=== PATIENT | male | born 1960 | race Caucasian/White ===

== ENCOUNTER → 2017-11-04 10:39 | Outpatient (CLI) | payer MEDICAID, SELFPAY ==
[2017-11-04 12:00] LABS: ALB/GLOB Ratio 0.9 RATIO (0.9-2.4); AST(SGOT) 42 U/L (15-37); Alanine Aminotransfer ALT/SGPT 60 U/L (16-61); Albumin, Serum 3.7 g/dL (3.2-5.0); Alkaline Phosphatase 82 U/L (45-117); Anion Gap 7 (5-15); BUN 13 mg/dL (7-18); BUN/Creat Ratio 12.9 RATIO (10-20); Calcium,Total 8.7 mg/dL (8.5-10.1); Chloride 105 mmol/L (98-107); Cholesterol 180 mg/dL (200); Creatinine, Serum 1.01 mg/dL (0.70-1.30); EST Glomerular Filtration Rate 80 mL/min (>60); Est Glom Filt Rate - Afr Amer 97 mL/min (>60); Globulin 3.9 g/dL (2.2-4.2); Glucose 101 mg/dL (74-106); High Density Lipoprotein 24 mg/dL; Protein, Total 7.6 g/dL (6.4-8.2); Sodium Level 141 mmol/L (136-145); Triglycerides 552 mg/dL
== END ==
PROVIDERS: Family Provider Nurse Practitioner Family; PCP Nurse Practitioner Family; Visit Provider Nurse Practitioner Family
DX: E78.5 Hyperlipidemia, unspecified (principal)
CPT/HCPCS: 36415; 80053; 80061

== ENCOUNTER → 2018-02-08 15:13 | Outpatient (CLI) | payer MEDICAID, SELFPAY ==
[2018-02-08 16:25] LABS: ALB/GLOB Ratio 1.1 RATIO (0.9-2.4); AST(SGOT) 41 U/L (15-37); Alanine Aminotransfer ALT/SGPT 44 U/L (16-61); Albumin, Serum 3.8 g/dL (3.2-5.0); Alkaline Phosphatase 81 U/L (45-117); Anion Gap 10 (5-15); BUN 9 mg/dL (7-18); BUN/Creat Ratio 9.6 RATIO (10-20); Calcium,Total 8.6 mg/dL (8.5-10.1); Chloride 106 mmol/L (98-107); Cholesterol 120 mg/dL (200); Creatinine, Serum 0.94 mg/dL (0.70-1.30); EST Glomerular Filtration Rate 88 mL/min (>60); Est Glom Filt Rate - Afr Amer 106 mL/min (>60); Globulin 3.4 g/dL (2.2-4.2); Glucose 115 mg/dL (74-106); High Density Lipoprotein 25 mg/dL; Potassium 3.7 mmol/L (3.5-5.1); Protein, Total 7.2 g/dL (6.4-8.2); Sodium Level 141 mmol/L (136-145); Triglycerides 269 mg/dL; Very Low Density Lipoprotein 54 mg/dL (5-40)
== END ==
PROVIDERS: Family Provider Nurse Practitioner Family; PCP Nurse Practitioner Family; Visit Provider Nurse Practitioner Family
DX: E78.5 Hyperlipidemia, unspecified (principal)
CPT/HCPCS: 36415; 80053; 80061

== ENCOUNTER → 2018-06-27 11:53 | Outpatient (CLI) | payer BC, MEDICAID, SELFPAY ==
[2018-06-27 14:22] LABS: AST(SGOT) 48 U/L (15-37); Alanine Aminotransfer ALT/SGPT 58 U/L (16-61); Albumin, Serum 3.8 g/dL (3.2-5.0); Alkaline Phosphatase 100 U/L (45-117); Anion Gap 8 (5-15); BUN 11 mg/dL (7-18); BUN/Creat Ratio 11.1 RATIO (10-20); Chloride 105 mmol/L (98-107); Cholesterol 133 mg/dL (200); Creatinine, Serum 0.99 mg/dL (0.70-1.30); EST Glomerular Filtration Rate 82 mL/min (>60); Est Glom Filt Rate - Afr Amer 100 mL/min (>60); Globulin 3.7 g/dL (2.2-4.2); Glucose 75 mg/dL (74-106); High Density Lipoprotein 27 mg/dL; Potassium 3.7 mmol/L (3.5-5.1); Protein, Total 7.5 g/dL (6.4-8.2); Sodium Level 142 mmol/L (136-145); Triglycerides 341 mg/dL; Very Low Density Lipoprotein 68 mg/dL (5-40)
[2018-06-27 14:29] LABS: Hemoglobin A1c 5.2 % (4.2-6.3)
== END ==
PROVIDERS: Family Provider Nurse Practitioner Family; PCP Nurse Practitioner Family; Referring Provider Nurse Practitioner Family
DX: E78.5 Hyperlipidemia, unspecified (principal); R73.01 Impaired fasting glucose; D64.9 Anemia, unspecified
CPT/HCPCS: 36415; 80053; 80061; 83036

== ENCOUNTER → 2019-01-19 16:20 | Outpatient (CLI) | payer MEDICAID, MEDICARE, SELFPAY ==
[2018-11-07 14:05] VITALS: BMI 34.4
== END ==
PROVIDERS: Family Provider Nurse Practitioner Family; PCP Nurse Practitioner Family; Referring Provider Nurse Practitioner Family; Visit Provider Nurse Practitioner Family
DX: E78.5 Hyperlipidemia, unspecified (principal)

== ENCOUNTER 2019-01-21 13:10 | Emergency (ER) | payer MEDICARE, MEDICAID, SELFPAY ==
[2018-11-07 14:05] VITALS: BMI 34.4
[2019-01-21 13:11] VITALS: BP 159/92; PULSE 79; RESP 16; TEMP 36.6; O2SAT 95; BMI 34.4
--- NOTE | 2019-01-21 13:50 | US_ITS ---
STUDY: SCROTUM ULTRASOUND REASON FOR EXAM: Male, 59 years old. Pain and swelling. TECHNIQUE: Ultrasound evaluation of the scrotum was performed with color Doppler and static michaud-scale imaging. COMPARISON: None. FINDINGS: RIGHT TESTICLE INTRATESTICULAR: There is a normal size of the right testicle. The right testicle measures 4.9 x 3.3 x 2.6 cm. There is a homogenous echotexture. There are scattered calcifications. There is normal arterial and normal venous vascularity. There is no demonstrated right testicular mass or cyst. EXTRATESTICULAR: The epididymis is normal in size. There is increased (hyperemic) vascularity of the epididymis. There is no demonstrated epididymal cystic structure. There is a moderate size hydrocele. There is no demonstrated varicocele. There is no demonstrated extratesticular mass or cyst. There is scrotal wall edema. Within the region where possible was reported that appears to be within the region of the right scrotum there is a 1.6 x 1.0 x 1.5 cm subcutaneous complex fluid collection 2.5 cm deep to the skin surface. LEFT TESTICLE INTRATESTICULAR: There is a normal size of the left testicle. The left testicle measures 4.7 x 3.1 x 2.8 cm. There is a homogenous echotexture. There are scattered microcalcifications. There is normal arterial and normal venous vascularity. There is no demonstrated left testicular mass or cyst. EXTRATESTICULAR: The epididymis is normal in size. There is normal vascularity of the epididymis. There is a 7.4 x 5.2 x 7.0 mm epididymal cyst. There is a small to moderate size demonstrated hydrocele. There is no demonstrated varicocele. There is scrotal wall edema. US/Testicular with Arterial Flow IMPRESSION: 1.6 x 1.0 x 1.5 cm complex subcutaneous fluid collection within the region of concern, that may be within the scrotal wall, please correlate clinically. Scrotal wall edema. Bilateral hydroceles. Hyperemic right epididymis may be secondary to a history of epididymitis. Left epididymal cyst. Electronically Signed: Amy Perez MD at 16:04 EDT Tel , Service support ,
[2019-01-21] MEDS: Naproxen 500 MG Tablet PO (14:03)
[2019-01-21 14:10] LABS: Mucous, Urine 0 SEEN /hpf (<or=2+); Squamous Epithelial Cells - UA 0 SEEN /hpf (0-5); White Blood Cells 0 SEEN /hpf (0-5)
[2019-01-21 14:11] LABS: Color, Urine Yellow (Yellow); Glucose, Dipstick Normal (Normal); Ketone-Dipstick Negative (Negative); Leukocyte Esterase-Dipstick Negative /ul (Negative); Nitrite-Dipstick Negative (Negative); Occult Blood-Urine 10 /ul (Negative); Protein-Dipstick Negative (Negative); Urine Bilirubin Dipstick Negative (Negative); Urine Clarity Clear (Clear); Urine Urobilinogen Normal (Normal)
[2019-01-21 14:20] LABS: Bacteria RARE /hpf (None Seen); Red Blood Cells-Urine 0-5 SEEN /hpf (0-5)
[2019-01-21 16:24] VITALS: BP 121/74; PULSE 72; RESP 16; O2SAT 98
--- NOTE | 2019-01-21 16:34 | ED.VISSUMM ---
- ER Visit Summary Date of Service: 01/21/19 Chief Complaint: Scrotal swelling History of Present Illness: The patient is a 59 M who presents for 4 days of worsening scrotal swelling. Patient states he noted swelling and pain on the right upper scrotum but is gradually worsened. Pain is been severe. Earlier today he noted that it was draining pus, which gave some relief from the pain. He has associated nausea. No fever, dysuria, urinary frequency urgency, hematuria or penile discharge. Patient denies any risky sexual behavior that would put him at risk for STDs. Patient has no medical history, including no diabetes. Physical Examination: Vital signs: afebrile, hemodynamically stable, no hypoxia on room air General: well nourished, well developed, in no distress Skin: warm, dry, no rash, no pallor HEENT: normocephalic and atraumatic; PERRL, EOMI, moist mucous membranes Cardiovascular: regular rate and rhythm without murmurs, no peripheral edema, 2+ pulses all distal extremities Respiratory: No increased work of breathing, lungs are clear to auscultation bilaterally, no rales, rhonchi or wheezing Abdominal: Abdomen is soft, nontender with normoactive bowel sounds, no guarding or rebound, no masses : No testicular tenderness, scrotum is edematous, indurated and erythematous, on the right lateral superior region. A small nodule with a scab over top noted in the center. Tenderness to palpation of the right hemiscrotum. No hernia noted. No penile lesions. No penile discharge. No enlarged lymph nodes but tenderness along palpation of the inguinal lymph node chain on the right MSK: Moves all extremities, no deformities, normal strength Neuro: Awake and alert, oriented ?4. No facial droop, sensation and motor function intact and symmetric Test Results: Abnormal Lab Results 01/21/19 14:00 Urine Color Yellow Urine Clarity Clear Urine pH 6.0 Ur Specific [place] 1.010 Urine Protein Negative Urine Glucose (UA) Normal Urine Ketones Negative Urine Occult Blood 10 H Urine Nitrite Negative Urine Bilirubin Negative Urine Urobilinogen Normal Ur Leukocyte Esterase Negative Urine RBC 0-5 SEEN Urine WBC 0 SEEN Ur Squamous Epith Cells 0 SEEN Urine Bacteria RARE Urine Mucus 0 SEEN Clinical Impression(s) from Imaging Studies Testicular Ultrasound 01/21/19 13:50 IMPRESSION: 1.6 x 1.0 x 1.5 cm complex subcutaneous fluid collection within the region of concern, that may be within the scrotal wall, please correlate clinically. Scrotal wall edema. Bilateral hydroceles. Hyperemic right epididymis may be secondary to a history of epididymitis. Left epididymal cyst. Electronically Signed: Amy Perez MD at 16:04 EDT Tel , Service support , Medications Given Discontinued Medications Amoxicillin/Clavulanate Potassium (Augmentin Tablet) 875 mg PO X1 ONE Stop: 01/21/19 16:34 Naproxen (Naprosyn) 500 mg PO X1 ONE Stop: 01/21/19 13:51 Last Admin: 01/21/19 14:03 Dose: 500 mg Emergency Department Course and Treatment: Patient was given naproxen for pain. Urinalysis was negative for infection or hematuria. Scrotal ultrasound was performed that showed a complex subcutaneous fluid collection 2.5 cm below the skin surface. Because of this deep fluid collection concerning for abscess, patient was discussed with Dr. Greene, who recommended admission and IV Zosyn. After discussion with the patient, patient stated he could not stay and needed to leave. Patient was again discussed with Dr. Greene, who then recommended the patient be started on Augmentin and follow-up in the office, calling tomorrow for an appointment, for outpatient drainage of the abscess. Patient was amenable to this plan. He was given the first dose of Augmentin in the emergency department. Patient was given strict return precautions and discharged home. Treatment Plan: [] Disposition: [] Impression: Right scrotal abscess with associated cellulitis This note was generated with [employer] dictation software. It may contain incorrect words, spelling, and punctuation that were not noted in review of the chart prior to signing ED Disposition - Plan for ED Patient: Disposition: Home or Assisted Living Instructions: ED Infec Skin Cellulitis Prescriptions: Amox/Clavulanate Tablet [Augmentin Tablet] 875 mg PO Q12H #20 tab Referrals: Ovi Moon NP-C [Primary Care Provider] - Ben Greene MD [STAFF PHYSICIAN] - 1 Day Additional Instructions: Take the antibiotic as prescribed. Please call the urologist's office first thing in the morning to arrange an appointment for as soon as possible. If you have any worsening of your condition or any new concerning symptoms, please return immediately to the emergency department for another evaluation.
[2019-01-21] MEDS: Amox/Clavulanate 875 MG Tablet PO (16:42)
[2019-01-21 16:43] VITALS: BP 132/78; PULSE 86; RESP 16; O2SAT 98
== END 2019-01-21 16:44 | disposition home or self-care (01) ==
PROVIDERS: Emergency Provider Emergency Medicine; Family Provider Nurse Practitioner Family; PCP Nurse Practitioner Family
DX: N49.2 Inflammatory disorders of scrotum (principal); N43.3 Hydrocele, unspecified; Z72.0 Tobacco use
CPT/HCPCS: 76870; 81001; 93976; 99283

== ENCOUNTER 2019-03-24 12:48 | Emergency (ER) | payer MEDICARE, MEDICAID, SELFPAY ==
[2019-03-24 12:49] VITALS: BP 135/88; PULSE 69; RESP 18; TEMP 36.4; O2SAT 96; BMI 32.8
--- NOTE | 2019-03-24 13:04 | RAD_ITS ---
STUDY: X-RAY CHEST REASON FOR EXAM: Male, 59 years old. Cough TECHNIQUE: Frontal and lateral views of the chest COMPARISON: 07/13/2017 FINDINGS: The lungs are clear. There are no pleural effusions. There is no pneumothorax. The heart is normal in size. The visualized osseous structures are within normal limits. RAD/Chest PA and Lateral IMPRESSION: No acute thoracic pathology. Electronically Signed: Clraence Wise, at 14:00 EDT Tel , Service support ,
[2019-03-24 13:13] VITALS: PULSE 68; RESP 18
[2019-03-24] MEDS: Ipratropium/Albuterol Sulfate 3 ML AMPUL.NEB INHALATION (13:13)
--- NOTE | 2019-03-24 13:15 | ED.VISSUMM ---
- ER Visit Summary Date of Service: 03/24/19 Chief Complaint: Cough and wheezing History of Present Illness: The patient is a 59 M who presents for evaluation of cough and wheezing. Patient states symptoms have been present for 1 week. He reports his symptoms began after he was changing the Freon in his cars air-conditioner he drove around with the AC on high. City a little bit discomfort in his throat but developed a moist productive cough. Now he states he is wheezing. Previous history of smoker does not smoke currently. History of a heart murmur obstructive sleep apnea GERD and IBS. No fevers. He has not been diagnosed with asthma or any form of COPD. Physical Examination: Afebrile vital signs are stable Gen: Well-nourished well-developed Head: Normocephalic atraumatic Eyes: Perrl EOMI ENT: TMs clear no rhinorrhea moist mucous membranes Neck: Supple no lymphadenopathy no JVD nontender CVS: Regular rate rhythm no murmurs normal S1-S2 Respiratory: No distress bilateral rhonchi, wheezing aspiratory, and tactile fremitus chest nontender Abdomen: Soft nontender nondistended normal bowel sounds no masses Back: Nontender Extremity: Nontender no edema Skin: Normal color no rash Neuro: alert orientated ?3 CN II-XII intact normal strength sensation Psych: Normal affect normal mood Test Results: Chest x-rays obtained. This was negative for infiltrate. Emergency Department Course and Treatment: The patient received a DuoNeb. Wheezing is better. Rhonchi remain. Patient was started on albuterol MDI, prednisone, and azithromycin. Return if worsening or concerns follow-up with primary care. I will write him a work note excusing him until Tuesday. Impression: 1. Acute bronchitis with bronchospasm This note was generated with [employer] dictation software. It may contain incorrect words, spelling, and punctuation that were not noted in review of the chart prior to signing ED Disposition - Plan for ED Patient: Disposition: Home or Assisted Living Instructions: BRONCHITIS with Wheezing (Adult) Prescriptions: Prednisone [Deltasone] 60 mg PO DAILY #15 tab Prescription Printed Albuterol Inhaler [Ventolin Hfa] 2 puff INHALATION Q4H PRN PRN #1 inhaler PRN Reason: Wheezing Prescription Printed Azithromycin [Zithromax Z-Jeyson] 250 mg PO UD #1 box Prescription Printed Referrals: Ovi Moon, T[employer] ERECTOR-C [Primary Care Provider] - 1 Week if not improving
== END 2019-03-24 14:27 | disposition home or self-care (01) ==
PROVIDERS: Emergency Provider Emergency Medicine; Family Provider Nurse Practitioner Family; PCP Nurse Practitioner Family
DX: J20.9 Acute bronchitis, unspecified (principal); G47.33 Obstructive sleep apnea (adult) (pediatric); K21.9 Gastro-esophageal reflux disease without esophagitis; K58.9 Irritable bowel syndrome, unspecified; Z79.899 Other long term (current) drug therapy; Z87.891 Personal history of nicotine dependence
CPT/HCPCS: 71046; 94640; 99282

== ENCOUNTER → 2019-04-12 14:21 | Outpatient (CLI) | payer MEDICARE, MEDICAID, SELFPAY ==
[2019-03-24 12:49] VITALS: BMI 32.8
[2019-04-12 15:46] LABS: AST(SGOT) 39 U/L (15-37); Alanine Aminotransfer ALT/SGPT 43 U/L (16-61); Albumin, Serum 3.8 g/dL (3.2-5.0); Alkaline Phosphatase 99 U/L (45-117); Anion Gap 6 (5-15); BUN 9 mg/dL (7-18); BUN/Creat Ratio 8.7 RATIO (10-20); Calcium,Total 9.1 mg/dL (8.5-10.1); Chloride 105 mmol/L (98-107); Cholesterol 164 mg/dL (200); Creatinine, Serum 1.04 mg/dL (0.70-1.30); EST Glomerular Filtration Rate 77 mL/min (>60); Est Glom Filt Rate - Afr Amer 94 mL/min (>60); Globulin 3.8 g/dL (2.2-4.2); Glucose 85 mg/dL (74-106); High Density Lipoprotein 31 mg/dL; Potassium 3.9 mmol/L (3.5-5.1); Protein, Total 7.6 g/dL (6.4-8.2); Sodium Level 139 mmol/L (136-145); Triglycerides 438 mg/dL
== END ==
PROVIDERS: Family Provider Nurse Practitioner Family; PCP Nurse Practitioner Family; Referring Provider Nurse Practitioner Family; Visit Provider Nurse Practitioner Family
DX: E78.5 Hyperlipidemia, unspecified (principal)
CPT/HCPCS: 36415; 80053; 80061

== ENCOUNTER → 2019-09-07 09:45 | Outpatient (CLI) | payer MEDICARE, MEDICAID, SELFPAY ==
--- NOTE | 2019-09-07 10:07 | EKG12_ITS ---
Test Reason : HIGH RISK MEDS Blood Pressure : / mmHG Vent. Rate : 065 BPM Atrial Rate : 065 BPM P-R Int : 158 ms QRS Dur : 084 ms QT Int : 384 ms P-R-T Axes : 017 037 024 degrees QTc Int : 399 ms Normal sinus rhythm with sinus arrhythmia Normal ECG Confirmed by JAIME AMAYA ([id number]), video tape editor SHADY SINGH ([id number]) on 09/11/2019 2:55:44 PM Referred By: KRYSTLE PRICE Confirmed By:JAIME AMAYA
[2019-09-07 11:19] LABS: AST(SGOT) 63 U/L (15-37); Alanine Aminotransfer ALT/SGPT 83 U/L (16-61); Albumin, Serum 3.9 g/dL (3.2-5.0); Alkaline Phosphatase 80 U/L (45-117); Anion Gap 5 (5-15); BUN 16 mg/dL (7-18); BUN/Creat Ratio 12.3 RATIO (10-20); Bilirubin, Direct 0.11 mg/dL (0.00-0.30); Calcium,Total 8.6 mg/dL (8.5-10.1); Chloride 107 mmol/L (98-107); Cholesterol 179 mg/dL (200); EST Glomerular Filtration Rate 60 mL/min (>60); Est Glom Filt Rate - Afr Amer 72 mL/min (>60); Globulin 3.8 g/dL (2.2-4.2); Glucose 98 mg/dL (74-106); High Density Lipoprotein 27 mg/dL; Potassium 4.2 mmol/L (3.5-5.1); Protein, Total 7.7 g/dL (6.4-8.2); Sodium Level 141 mmol/L (136-145); Thyroid Stim Hormone (TSH) 1.72 uIU/mL (0.358-3.74); Triglycerides 329 mg/dL; Very Low Density Lipoprotein 66 mg/dL (5-40)
[2019-09-07 11:21] LABS: Hemoglobin A1c 5.9 % (4.2-6.3)
== END ==
PROVIDERS: Family Provider Nurse Practitioner Family; PCP Nurse Practitioner Family
DX: E78.1 Pure hyperglyceridemia (principal); E78.5 Hyperlipidemia, unspecified; R73.01 Impaired fasting glucose; Z79.899 Other long term (current) drug therapy
CPT/HCPCS: 36415; 80053; 80061; 82248; 83036; 84443; 93005

== ENCOUNTER 2020-05-25 11:15 | Emergency (ER) | payer MEDICARE, MEDICAID, SELFPAY ==
[2020-05-25 11:15] VITALS: BP 159/94; PULSE 71; RESP 16; TEMP 36.1; O2SAT 98; BMI 34.8
--- NOTE | 2020-05-25 11:35 | EKG12_ITS ---
Test Reason : Blood Pressure : / mmHG Vent. Rate : 065 BPM Atrial Rate : 065 BPM P-R Int : 166 ms QRS Dur : 078 ms QT Int : 386 ms P-R-T Axes : -01 038 029 degrees QTc Int : 401 ms Sinus rhythm with Premature atrial complexes in a pattern of bigeminy Otherwise normal ECG Confirmed by SHERRY NOLAND, MARA ([id number]), food expeditor VIGNESH BALLARD ([id number]) on 05/28/2020 11:26:10 AM Referred By: ESHA Confirmed By:MARA POWELL MD
--- NOTE | 2020-05-25 11:35 | CT_ITS ---
STUDY: CT BRAIN WITHOUT CONTRAST REASON FOR EXAM: Male, 60 years old. Bilateral hand numbness x 1 week. No prior surgery, hypertension, diabetes, stroke or seizure. RADIATION DOSAGE (If Supplied By Facility): CTDIvol = ( 44.99 ) mGy, DLP = ( 812.98 ) mGycm TECHNIQUE: Transaxial CT imaging of the brain was performed without administration of intravenous contrast material. Individualized dose optimization techniques were used for this CT. COMPARISON: No relevant priors. FINDINGS: Normal soft tissue structures. Normal calvarium. Normal size ventricles and extra-axial spaces for the patient''s age. Normal white matter tracts of the cerebral hemispheres. Normal basal ganglia and thalami. Normal brainstem. Normal cerebellum. There is no intracranial hemorrhage. There are no findings of an acute ischemic infarction. Normal visualized paranasal sinuses. CT/Brain/Head without Contrast IMPRESSION: Normal unenhanced CT scan of the brain. Electronically Signed: Ovi Carreno MD at 12:10 EDT Tel , Service support ,
--- NOTE | 2020-05-25 11:37 | ED.VISSUMM ---
- ER Visit Summary Date of Service: 05/25/20 Chief Complaint: [Numbness and tingling to hands and feet] History of Present Illness: The patient is a 60 M [presents the emergency department with numbness and tingling to his hands and feet that started a week ago. Symptoms are bilateral. Last evening he had numbness to the mostly left side of his body which now is mostly resolved except again in his hands and feet. Patient states he also had some sharp stabbing chest pains last night. He complains of intermittent sharp stabbing pain in his head. Patient denies any weakness in the extremities. He denies any vision or speech difficulty. Patient is not sure if he is a diabetic and states he has not seen a doctor in quite some time. He is got a history of high cholesterol, rheumatoid arthritis, anxiety, depression, and obstructive sleep apnea. She denies recent illness. Patient denies neck trauma.] Physical Examination: [HEENT-PERRLA, EOMI. Cranial nerves II through XII grossly intact. TMs clear. Mucous membranes moist. No adenopathy. Cardiovascular-regular rate and rhythm with a 2 out of 6 systolic ejection murmur. Lungs-clear to auscultation, chest wall stable without crepitus or subcu emphysema Abdomen-normoactive bowel sounds, soft, nontender, no rebound or rigidity, no peritoneal signs. Neuro [id number] and heel resendiz testing within normal limits, negative Romberg, negative for drift, fundi benign. No focal deficits noted. No facial droop. Extremities-intact ?4, normal range of motion, normal pulses, atraumatic] Test Results: [EKG obtained arrival shows sinus rhythm with a ventricular rate of 65 bpm with no acute ST segment changes. CBC with it was normal. Chemistries unremarkable. Glucose was 93. Troponin was less than 0.015. CT scan of the brain was normal.] Emergency Department Course and Treatment: [ Established on arrival. Patient placed on car examiner.] Treatment Plan: [Patient advised to follow-up with his primary care physician within next 3 to 5 days. Patient understands he may need more work-up and evaluation for the paresthesias as etiology is unclear at this time. He is not having any neck pain currently and he has had no neck injury. He may need more imaging such as possibly MRI of head and neck to evaluate further if symptoms do not resolve.] Disposition: [Discharged home in stable condition] Impression: [Paresthesias-etiology uncertain] This note was generated with [employer] dictation software. It may contain incorrect words, spelling, and punctuation that were not noted in review of the chart prior to signing ED Disposition - Plan for ED Patient: Referrals: Ovi Moon [employer], [employer] [Primary Care Provider] -
[2020-05-25 12:00] LABS: Absolute Lymphocyte Count 1.95 X10^3/uL (0.83-4.51); Absolute Neutrophil Count 4.1 X10^3/uL (2.0-7.7); Basophil# 0.04 X10^3/uL; Basophil% 0.6 % (0-1); Eosinophil# 0.15 X10^3/uL; Eosinophils% 2.2 % (0-5); Hematocrit 43.9 % (40-54); Lymphocyte # 1.95 X10^3/ul (4.0); Lymphocyte % 28.3 % (19-41); Mean Corp Hgb Conc 34.2 g/dL (32-36); Mean Corpuscular Volume 90.7 fL (80-94); Mean Platelet Vol. 11.4 fl (6.2-12.0); Monocyte# 0.64 X10^3/uL; Monocyte% 9.3 % (0-10); NRBC Flagged by Analyzer 0 % (0-5); Neutrophil # 4.11 X10^3/uL (2.7-7.7); Neutrophil % 59.5 % (47-70); Platelet Count 145 K/mm3 (150-450); RBC Distribution Width SD 42.6 fl (35.1-43.9); Red Blood Count 4.84 M/mm3 (4.6-6.2); White Blood Count 6.9 K/mm3 (4.4-11.0)
[2020-05-25] MEDS: 0.9% Normal Saline 1,000 ML 150 ML IV (12:05)
[2020-05-25 12:15] LABS: Anion Gap 2 (5-15); BUN 14 mg/dL (7-18); BUN/Creat Ratio 12.1 RATIO (10-20); Calcium,Total 8.5 mg/dL (8.5-10.1); Chloride 110 mmol/L (98-107); Creatinine, Serum 1.16 mg/dL (0.70-1.30); EST Glomerular Filtration Rate 68 mL/min (>60); Est Glom Filt Rate - Afr Amer 82 mL/min (>60); Estimated Creatinine Clearance 71.22 ml/min; Glucose 93 mg/dL (74-106); Potassium 3.8 mmol/L (3.5-5.1); Sodium Level 140 mmol/L (136-145)
--- NOTE | 2020-05-25 12:23 | DCINST.ED_ITS ---
ED Disposition - Plan for ED Patient: Instructions: ED PERIPHERAL NEUROPATHY, ED Paraesthesias Referrals: Ovi Moon [employer], [employer] [Primary Care Provider] - 3-5 Days
--- NOTE | 2020-05-25 12:23 | ED.DEP ---
ED Disposition - Plan for ED Patient: Instructions: ED PERIPHERAL NEUROPATHY, ED Paraesthesias Referrals: Ovi Moon CONSULTANT IN ERGONOMICS AND SAFETY, CONSULTANT IN ERGONOMICS AND SAFETY-C [Primary Care Provider] - 3-5 Days
== END 2020-05-25 12:40 | disposition home or self-care (01) ==
LOC: ED 12:28
PROVIDERS: Emergency Provider Emergency Medicine; PCP Nurse Practitioner Family
DX: R20.2 Paresthesia of skin (principal); E78.00 Pure hypercholesterolemia, unspecified; F41.9 Anxiety disorder, unspecified
CPT/HCPCS: 70450; 80048; 84484; 85025; 93005; 96360; 99284; J7030; A4216

== ENCOUNTER → 2020-12-24 13:52 | Outpatient (CLI) | payer MEDICARE, MEDICAID, SELFPAY ==
[2020-12-24 16:18] LABS: Hematocrit 43.8 % (40-54); Hemoglobin 14.3 g/dL (13.0-16.5); Mean Corp Hgb Conc 32.6 g/dL (32-36); Mean Corpuscular Hgb 29.8 pg (27.0-32.0); Mean Corpuscular Volume 91.3 fL (80-94); Mean Platelet Vol. 11.2 fl (6.2-12.0); Platelet Count 167 K/mm3 (150-450); RBC Distribution Width CV 13.2 % (11.6-14.6); RBC Distribution Width SD 44.7 fl (35.1-43.9); White Blood Count 7.3 K/mm3 (4.4-11.0)
[2020-12-24 17:00] LABS: AST(SGOT) 65 U/L (15-37); Alanine Aminotransfer ALT/SGPT 80 U/L (16-61); Albumin, Serum 3.7 g/dL (3.2-5.0); Alkaline Phosphatase 82 U/L (45-117); Anion Gap 5 (5-15); BUN 15 mg/dL (7-18); BUN/Creat Ratio 12.7 RATIO (10-20); Calcium,Total 8.7 mg/dL (8.5-10.1); Chloride 106 mmol/L (98-107); Cholesterol 141 mg/dL (200); Creatinine, Serum 1.18 mg/dL (0.70-1.30); EST Glomerular Filtration Rate 67 mL/min (>60); Est Glom Filt Rate - Afr Amer 81 mL/min (>60); Globulin 3.7 g/dL (2.2-4.2); Glucose 68 mg/dL (74-106); High Density Lipoprotein 19 mg/dL; Potassium 3.7 mmol/L (3.5-5.1); Protein, Total 7.4 g/dL (6.4-8.2); Sodium Level 139 mmol/L (136-145); Triglycerides 290 mg/dL; Very Low Density Lipoprotein 58 mg/dL (5-40)
== END ==
PROVIDERS: PCP Nurse Practitioner Family; Referring Provider Nurse Practitioner Family; Visit Provider Nurse Practitioner Family
DX: E78.5 Hyperlipidemia, unspecified (principal); R73.01 Impaired fasting glucose; Z12.5 Encounter for screening for malignant neoplasm of prostate
CPT/HCPCS: 36415; 80053; 80061; 84153; 85027; G0103

== ENCOUNTER 2021-12-08 16:08 | Emergency (ER) | payer MEDICARE, MEDICAID, SELFPAY ==
[2021-12-08 16:09] VITALS: PULSE 69; RESP 18; TEMP 36.6; O2SAT 96; BMI 37.6
[2021-12-08 16:18] VITALS: BP 88/60; PULSE 68; RESP 18; O2SAT 95
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
--- NOTE | 2021-12-08 17:32 | CT_ITS ---
EXAM: CT SPINE - CERVICAL WITHOUT IV REASON FOR EXAM: Male, 61 years old. NECK PAIN Injury/Pain Individualized dose optimization techniques were used for this CT. TECHNIQUE: Multiplanar images were obtained of the cervical spine. IV contrast was not utilized. COMPARISON: None. FINDINGS: The vertebral bodies do maintain their height. The odontoid process is intact. There is no anterolisthesis or fracture. No pre-vertebral soft tissue swelling is seen. The intravertebral disc height is lost. There are scattered lymph nodes in the neck. There are degenerative changes of the osseous structures. There is bilateral facet arthropathy. There are scattered levels of foraminal stenosis. There are vascular calcifications. There is mild straightening of the normal cervical lordosis. This can suggest neck strain. CT/Spine Cervical without Contras IMPRESSION: Degenerative changes of the cervical spine. There is mild straightening of the normal cervical lordosis. This can suggest neck strain. Electronically Signed: Nishant Granados MD at 18:49 EDT ,
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
[2021-12-08 18:10] VITALS: PULSE 68; RESP 16; O2SAT 99
--- NOTE | 2021-12-08 18:25 | RAD_ITS ---
STUDY: XR Shoulder Min 2 Views REASON FOR EXAM: Male, 61 years old. PAIN TECHNIQUE: XR Shoulder Min 2 Views LEFT COMPARISON: None. FINDINGS: Normal glenohumeral articulation. Normal acromioclavicular joint. Normal acromion. Normal humeral head and visualized proximal humerus. The soft tissue structures are unremarkable. Normal visualized pulmonary apex. RAD/Shoulder min 2 Views IMPRESSION: There are no acute findings of the shoulder. Electronically Signed: Nishant Granados MD at 19:18 EDT ,
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
--- NOTE | 2021-12-08 18:25 | RAD_ITS ---
STUDY: XR Knee Complete 4 Views or More 12/08/2021 7:14 PM REASON FOR EXAM: Male, 61 years old. PAIN TECHNIQUE: XR Knee Complete 4 Views or More RIGHT COMPARISON: None FINDINGS: Normal visualized distal femur. Normal visualized proximal tibia and fibula. Normal proximal tibiofibular articulation. Normal medial femorotibial compartment. Normal lateral femorotibial compartment. Normal patellofemoral articulation. The soft tissue structures are unremarkable. RAD/Knee 4 or More Views IMPRESSION: There are no acute findings. Electronically Signed: Nishant Granados MD at 19:16 EDT ,
--- NOTE | 2021-12-08 18:25 | RAD_ITS ---
STUDY: XR Shoulder Min 2 Views REASON FOR EXAM: Male, 61 years old. PAIN TECHNIQUE: XR Shoulder Min 2 Views RIGHT COMPARISON: None. FINDINGS: Normal glenohumeral articulation. There is degenerative arthrosis of the acromioclavicular joint without inferior osseous spur formation. Normal acromion. Normal humeral head and visualized proximal humerus. There is periarticular soft tissue calcification consistent with a calcific tendinitis. Normal visualized pulmonary apex. RAD/Shoulder min 2 Views IMPRESSION: There is periarticular soft tissue calcification consistent with a calcific tendinitis. Electronically Signed: Nishant Granados MD at 19:15 EDT ,
--- NOTE | 2021-12-08 18:25 | RAD_ITS ---
STUDY: XR Knee Complete 4 Views or More 12/08/2021 7:14 PM REASON FOR EXAM: Male, 61 years old. PAIN TECHNIQUE: XR Knee Complete 4 Views or More LEFT COMPARISON: None FINDINGS: Normal visualized distal femur. Normal visualized proximal tibia and fibula. Normal proximal tibiofibular articulation. Normal medial femorotibial compartment. Normal lateral femorotibial compartment. Normal patellofemoral articulation. The soft tissue structures are unremarkable. RAD/Knee 4 or More Views IMPRESSION: There are no acute findings. Electronically Signed: Nishant Granados MD at 19:15 EDT ,
--- NOTE | 2021-12-08 18:25 | RAD_ITS ---
STUDY: X-RAY - PELVIS AND BILATERAL HIP REASON FOR EXAM: Male, 61 years old. Injury/Pain TECHNIQUE: XR Hips Bilateral with Pelvis when performed; 2 Views COMPARISON: None. FINDINGS: There is a non-specific bowel gas pattern. Normal visualized soft tissue structures. There are multiple calcified phleboliths. There are degenerative changes of the lumbar spine. Normal bilateral iliac wings, sacroiliac joints and visualized sacrum. Normal bilateral superior and inferior pubic rami. Normal pubic symphysis. Normal bilateral ischial tuberosities. Normal visualized femoral head. Normal acetabulum. Normal hip joint. RAD/Hips B/L min 2 views w/ Pelvis IMPRESSION: No acute findings. Electronically Signed: Nishant Graandos MD at 19:14 EDT ,
[2021-12-08] MEDS: HYDROcodone Bitartrate/Apap 5/325 Tablet PO (19:57)
[2021-12-08 19:58] VITALS: BP 139/94; PULSE 76; RESP 16; O2SAT 99
== END 2021-12-08 20:01 | disposition home or self-care (01) ==
PROVIDERS: Emergency Provider Emergency Medicine; PCP Nurse Practitioner Family; Visit Provider Emergency Medicine
DX: S16.1XXA Strain of muscle, fascia and tendon at neck level, initial encounter (principal); S46.911A Strain of unspecified muscle, fascia and tendon at shoulder and upper arm level, right arm, initial encounter; S70.02XA Contusion of left hip, initial encounter; S70.01XA Contusion of right hip, initial encounter; S80.02XA Contusion of left knee, initial encounter; S80.01XA Contusion of right knee, initial encounter; G47.33 Obstructive sleep apnea (adult) (pediatric); E66.9 Obesity, unspecified; Z87.891 Personal history of nicotine dependence; V89.2XXA Person injured in unspecified motor-vehicle accident, traffic, initial encounter
CPT/HCPCS: 70450; 72100; 72125; 73030; 73521; 73564; 99283

== ENCOUNTER 2021-12-12 13:49 | Emergency (ER) | payer MEDICARE, MEDICAID, SELFPAY ==
[2021-12-12 13:50] VITALS: BP 139/79; PULSE 74; RESP 18; TEMP 35.9; O2SAT 95; BMI 35.5
--- NOTE | 2021-12-12 14:11 | CT_ITS ---
STUDY: CT ABDOMEN AND PELVIS WITH CONTRAST REASON FOR EXAM: Male, 61 years old. Abdominal pain RADIATION DOSAGE (If Supplied By Facility): DLP = ( 1274.57 ) mGycm TECHNIQUE: Transaxial images were obtained from the dome of the diaphragm to the symphysis pubis without oral contrast. 100 ml of 100mL Isovue-370 contrast was administered. Sagittal and coronal images were reconstructed. Individualized dose optimization techniques were used for this CT. COMPARISON: None. FINDINGS: Inferior chest: Clear lung bases, normal distal esophagus, no cardiomegaly and no visible coronary artery calcifications. There are mild aortic valve leaflet calcifications. Body wall soft tissues: No acute process. Osseous structures: No acute process. Mild spondylosis. Mild scoliosis and osteopenia. Hepatobiliary: Normal gallbladder and biliary tree. Borderline hepatomegaly craniocaudal right liver 17.9 cm. There is evidence of hepatic steatosis. Pancreas: Normal. Spleen: Normal. Adrenal glands: Normal. Urogenital: Benign left renal BOSNIAK category 1 cyst requiring no follow-up. Otherwise normal kidneys, collecting systems, ureters, urinary bladder, prostate and seminal vesicles. Retroperitoneum: No mass or lymphadenopathy. Vascular: Mild atherosclerosis. Stomach: Normal. Small bowel and mesentery: Normal. Appendix: Normal. Large bowel and rectum: Normal. Ascites or free air: None. CT/Abdomen/Pelvis W IV Cont ONLY IMPRESSION: 1. No acute abdominopelvic process is evident. 2. Borderline hepatomegaly with evidence of hepatic steatosis. Electronically Signed: Ovi Heard MD at 15:13 EDT ,
[2021-12-12] MEDS: 0.9% Normal Saline 1,000 ML 1000 ML IV (14:24)
[2021-12-12 14:30] LABS: Absolute Lymphocyte Count 2.13 X10^3/uL (0.83-4.51); Absolute Neutrophil Count 3.8 X10^3/uL (2.0-7.7); Basophil# 0.03 X10^3/uL; Basophil% 0.4 % (0-1); Eosinophil# 0.13 X10^3/uL; Eosinophils% 1.9 % (0-5); Hematocrit 42.7 % (40-54); Lymphocyte # 2.13 X10^3/ul (0.83-4.51); Lymphocyte % 31.9 % (19-41); Mean Corp Hgb Conc 35.1 g/dL (32-36); Mean Corpuscular Hgb 30.6 pg (27.0-32.0); Mean Corpuscular Volume 87.1 fL (80-94); Mean Platelet Vol. 11.3 fl (6.2-12.0); Monocyte# 0.59 X10^3/uL; Monocyte% 8.8 % (0-10); NRBC Flagged by Analyzer 0 % (0-5); Neutrophil # 3.77 X10^3/uL (2.7-7.7); Neutrophil % 56.7 % (47-70); Platelet Count 153 K/mm3 (150-450); RBC Distribution Width CV 12.9 % (11.6-14.6); RBC Distribution Width SD 40.7 fl (35.1-43.9); White Blood Count 6.7 K/mm3 (4.4-11.0)
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
[2021-12-12 14:43] LABS: Anion Gap 6 (5-15); BUN 12 mg/dL (7-18); BUN/Creat Ratio 11.2 RATIO (10-20); Calcium,Total 8.6 mg/dL (8.5-10.1); Chloride 107 mmol/L (98-107); Creatinine, Serum 1.07 mg/dL (0.70-1.30); EST Glomerular Filtration Rate 74 mL/min (>60); Est Glom Filt Rate - Afr Amer 90 mL/min (>60); Estimated Creatinine Clearance 76.24 ml/min; Glucose 110 mg/dL (74-106); Potassium 3.8 mmol/L (3.5-5.1); Sodium Level 139 mmol/L (136-145)
[2021-12-12 14:47] VITALS: PULSE 74; RESP 16; O2SAT 99
[2021-12-12] MEDS: Acetaminophen 500 MG Tablet 1000 MG PO (15:16)
[2021-12-12 15:27] VITALS: BP 140/82; PULSE 76; RESP 16
== END 2021-12-12 15:28 | disposition home or self-care (01) ==
LOC: ED 14:30
PROVIDERS: Nurse Practitioner; Emergency Provider Emergency Medicine; PCP Nurse Practitioner Family; Visit Provider Emergency Medicine
DX: R31.9 Hematuria, unspecified (principal); M62.838 Other muscle spasm; E78.5 Hyperlipidemia, unspecified; G47.33 Obstructive sleep apnea (adult) (pediatric); K21.9 Gastro-esophageal reflux disease without esophagitis; Z87.891 Personal history of nicotine dependence; Z79.899 Other long term (current) drug therapy
CPT/HCPCS: 74177; 80048; 85025; 99283; Q9967

== ENCOUNTER 2022-06-24 14:08 | Emergency (ER) | payer MEDICARE, MEDICAID, SELFPAY ==
[2022-06-24 14:09] VITALS: BP 205/97; PULSE 75; RESP 18; TEMP 35.8; O2SAT 96; BMI 34.2
--- NOTE | 2022-06-24 14:14 | EKG12_ITS ---
Test Reason : CP Blood Pressure : / mmHG Vent. Rate : 072 BPM Atrial Rate : 072 BPM P-R Int : 164 ms QRS Dur : 088 ms QT Int : 392 ms P-R-T Axes : 011 038 009 degrees QTc Int : 429 ms Sinus rhythm with Premature atrial complexes in a pattern of bigeminy Otherwise normal ECG Confirmed by FARHEEN NOLAND, TALON ([id number]), desk editor VIGNESH BALLARD ([id number]) on 06/28/2022 9:48:49 A M Referred By: PARAG Confirmed By:ZOEY ZHONG MD
--- NOTE | 2022-06-24 14:36 | RAD_ITS ---
STUDY: X-RAY CHEST REASON FOR EXAM: Male, 62 years old. Chest pain TECHNIQUE: Single AP portable view of the chest. COMPARISON: Comparison is made with prior study dated 03/24/2019. FINDINGS: Hyperinflation. The lungs are clear. There is no demonstrated pleural abnormality. Normal size heart. Normal mediastinum and iban. Normal visualized pulmonary arteries. There is atherosclerotic tortuosity of the aortic arch and descending thoracic aorta. There are diffuse degenerative changes of the visualized thoracic spine. Normal visualized ribs, clavicles, and shoulders. There is no demonstrated abnormality of the visualized soft tissue structures of the upper abdomen. RAD/Chest 1 View (Portable) IMPRESSION: Normal x-ray examination of the chest. Electronically Signed: Dayron Rainey MD at 15:15 EDT ,
[2022-06-24 14:43] LABS: Absolute Lymphocyte Count 2.33 X10^3/uL (0.83-4.51); Absolute Neutrophil Count 6.8 X10^3/uL (2.0-7.7); Basophil# 0.05 X10^3/uL; Basophil% 0.5 % (0-1); Eosinophil# 0.08 X10^3/uL; Eosinophils% 0.8 % (0-5); Hematocrit 49.4 % (40-54); Lymphocyte # 2.33 X10^3/ul (0.83-4.51); Lymphocyte % 22.8 % (19-41); Mean Corp Hgb Conc 34.4 g/dL (32-36); Mean Corpuscular Hgb 31.6 pg (27.0-32.0); Mean Corpuscular Volume 91.8 fL (80-94); Mean Platelet Vol. 11.3 fl (6.2-12.0); Monocyte# 0.97 X10^3/uL; Monocyte% 9.5 % (0-10); NRBC Flagged by Analyzer 0 % (0-5); Neutrophil # 6.75 X10^3/uL (2.7-7.7); Neutrophil % 66.1 % (47-70); Platelet Count 141 K/mm3 (150-450); RBC Distribution Width CV 13.6 % (11.6-14.6); Red Blood Count 5.38 M/mm3 (4.6-6.2); White Blood Count 10.2 K/mm3 (4.4-11.0)
[2022-06-24 14:59] LABS: Anion Gap 7 (5-15); BUN 14 mg/dL (7-18); Calcium,Total 9.6 mg/dL (8.5-10.1); Chloride 104 mmol/L (98-107); Creatinine, Serum 1.08 mg/dL (0.70-1.30); EST Glomerular Filtration Rate 73 mL/min (>60); Est Glom Filt Rate - Afr Amer 89 mL/min (>60); Estimated Creatinine Clearance 74.56 ml/min; Glucose 97 mg/dL (74-106); Sodium Level 139 mmol/L (136-145); Troponin-I HS (w/2H Reflex) 11 pg/mL (3.0-78.0)
[2022-06-24 15:08] VITALS: BP 180/99; PULSE 74; RESP 16; O2SAT 99
[2022-06-24 15:22] VITALS: O2SAT 94
[2022-06-24 15:57] VITALS: BP 149/98
--- NOTE | 2022-06-24 16:10 | EDS_ITS ---
HPI History of Present Illness Chief Complaint: Chest Pain Narrative Narrative: 61-year-old male with history of PTSD, anxiety, panic disorder presenting with left-sided chest pain which is intermittent. He describes it as a stabbing feeling. He does not have pain with deep inspiration. He is not short of breath. Pain he states he felt like he had some panic this morning and was very sweaty. He is not had fever, chills, cough. He states he has a heart murmur but no history of CAD or cardiac stents. He is a previous smoker. No history of DVT/PE. [facility] Medical History (Updated 12/20/21 @ 00:01 by Background Fartun) Anemia Anxiety Benign mole Cataracts, bilateral Depression Dyspnea on exertion GERD (gastroesophageal reflux disease) Hearing loss Hyperlipemia IBS (irritable bowel syndrome) RHONDA (obstructive sleep apnea) Preventative health care Rheumatoid arthritis Shingles Sleep apnea Snoring Tobacco abuse, in remission Home Medications doxepin 100 mg capsule 100 mg PO QHS PRN Sleep 07/13/17 [History Last Taken 01/21/19] lorazepam 1 mg tablet 1 mg PO QHS 07/13/17 [History Last Taken 01/21/19] omeprazole 20 mg capsule,delayed release 20 mg PO ONCE 08/16/17 [History Last Taken 01/21/19] atorvastatin 20 mg tablet 20 mg PO QHS 03/24/19 [History Last Taken Unknown] cyclobenzaprine 10 mg tablet 10 mg PO BID PRN muscle spasm #10 tabs 12/12/21 [Rx Last Taken Unknown] oxycodone-acetaminophen 5 mg-325 mg tablet (Endocet) 1 tab PO Q6H PRN pain 3 days #10 tabs 12/12/21 [Rx Last Taken Unknown] Allergy/AdvReac Type Severity Reaction Status Date / Time No Known Allergies Allergy Verified 06/24/22 14:09 Social History adopted: No household members: none housing: other details: mobile home current occupational status: disabled current occupational exposures/hazards: No pets and animals: No history of recent travel: No Smoking Status: Former smoker second hand exposure: Yes alcohol intake: current alcohol intake frequency: a few times a month Alcohol type: beer substance use type: does not use ROS ROS ED Constitutional Constitutional ED: Reports sweats; Denies chills or fever(s) Eyes Eyes: Denies blurry vision or change in vision ENT ENT ED: Denies rhinorrhea or sore throat Cardiovascular Cardiovascular: Reports as per HPI Respiratory/Chest Respiratory/Chest: Denies cough or dyspnea Gastrointestinal Gastrointestinal: Denies abdominal pain or constipation Genitourinary Genitourinary ED: Denies dysuria or hematuria Musculoskeletal Musculoskeletal: Denies arthralgias or back pain Integumentary Denies abscess Neurologic Neurologic: Denies headache(s) Psychiatric Psychiatric: Reports anxiety; Denies suicidal ideation or suicidal thoughts EXAM Physical Exam Const Vital Signs: 06/24/22 14:09 06/24/22 15:22 06/24/22 15:23 Temperature 96.5 F L Temperature Source Temporal Pulse Rate 75 Respiratory Rate 18 Respiratory Effort Normal Blood Pressure 205/97 H Blood Pressure Mean 133 Pulse Ox 96 94 Oxygen Delivery Method Room Air Room Air 06/24/22 15:08 06/24/22 15:57 Temperature Temperature Source Pulse Rate 74 Respiratory Rate 16 Respiratory Effort Blood Pressure 180/99 H 149/98 H Blood Pressure Mean 126 115 Pulse Ox 99 Oxygen Delivery Method Room Air Positive well nourished General Appearance ED: NAD; Negative for pallor HEENT Reports TM's clear normocephalic Tympanic Membrane ED: Yes TM's clear Eyes PERRL and EOMs intact bilaterally Chest Wall inspection of chest normal and palpation of chest normal Resp normal respiratory effort and clear to auscultation bilaterally Cardio regular rate and regular rhythm GI normal to inspection, nondistended, normoactive bowel sounds Extremity normal to inspection Neuro oriented x3 and CN's II-XII intact bilaterally Sensorium / Orientation: awake and alert Skin no rashes or lesions noted General Skin Exam: Negative for jaundice or pallor Heart Score History: Slightly/Non-Suspicious ECG: Normal Age: >45 - <65 years Risk Factors: 1 or 2 Risk Factors Troponin: </= Normal Limit Score: 2 MDM MDM MDM Narrative Medical decision making narrative: 61-year-old male presenting with chest pain. This started this morning when he woke up. Has not been constant but has been persistent all day long. He does not any shortness of breath. No DVT/PE risk factors. He is PERC negative. EKG on my interpretation is sinus rhythm with a ventricular rate of 72 bpm without sign of ischemic change. Chest x-ray on my interpretation is no acute cardiopulmonary process Also simply. CBC and BMP are unremarkable. High-sensitivity troponin is 11 after having this pain all day long I have a low suspicion for ACS. He does describe that he has a panic disorder and was feeling this this morning. I do not believe he needs a second troponin. Vital signs are stable and he is afebrile. He is nontoxic-appearing. He states he feels well currently. We will have the patient follow-up with his PCP. Return precautions discussed. Impression: 1. Chest pain. 2. History of anxiety With 3 history of PTSD Lab Data Labs: Laboratory Results - last 24 hr 06/24/22 06/24/22 14:15 14:15 WBC 10.2 RBC 5.38 Hgb 17.0 H Hct 49.4 MCV 91.8 MCH 31.6 MCHC 34.4 RDW Std Deviation 46.0 H RDW Coeff of Sunita 13.6 Plt Count 141 L MPV 11.3 Immature Gran % (Auto) 0.300 Neut % (Auto) 66.1 Lymph % (Auto) 22.8 Curry % (Auto) 9.5 Eos % (Auto) 0.8 Baso % (Auto) 0.5 Absolute Neuts (auto) 6.8 Absolute Lymphs (auto) 2.33 Nucleated RBC % 0 Sodium 139 Potassium 4.0 Chloride 104 Carbon Dioxide 28.0 Anion Gap 7 BUN 14 Creatinine 1.08 Estim Creat Clear Calc 74.56 Est GFR (MDRD) Af Amer 89 Est GFR (MDRD) Non-Af 73 BUN/Creatinine Ratio 13.0 Glucose 97 Calcium 9.6 Troponin I High Sens 11 Radiography Diagnostic Testing: Clinical Impression(s) from Imaging Studies Chest X-Ray 06/24/22 14:36 IMPRESSION: Normal x-ray examination of the chest. Electronically Signed: Dayron Rainey MD at 15:15 EDT , Discharge Plan Triage Chief Complaint: Chest Pain ED Provider: Kurt Yun Dx/Rx/DC Orders Prescriptions: No Action omeprazole 20 mg capsule,delayed release(DR/EC) 20 mg PO ONCE doxepin 100 MG capsule 100 mg PO QHS PRN (Reason: Sleep) Label Comments: TAKE 1 CAPSULE BY MOUTH AT BEDTIME NEEDED lorazepam 1 tablet 1 mg PO QHS Label Comments: atorvastatin 20 MG tablet 20 mg PO QHS oxycodone-acetaminophen [Endocet] 5-325 mg tablet 1 tab PO Q6H PRN (Reason: pain) 3 Days Qty: 10 0RF cyclobenzaprine 10 mg tablet 10 mg PO BID PRN (Reason: muscle spasm) Qty: 10 0RF Primary Care Provider: Elijah Fields Referrals: Elijah Fields MD [Primary Care Provider] -
[2022-06-24 16:28] VITALS: BP 157/101; PULSE 75; RESP 18; O2SAT 95
[2022-06-24 16:37] LABS: Reflex Troponin-HS? (from REC) Y
== END 2022-06-24 16:29 | disposition home or self-care (01) ==
PROVIDERS: Emergency Provider Student in an Organized Health Care Education/Training Program; PCP Internal Medicine; Visit Provider Student in an Organized Health Care Education/Training Program
DX: R07.9 Chest pain, unspecified (principal); E78.5 Hyperlipidemia, unspecified; G47.33 Obstructive sleep apnea (adult) (pediatric); Z79.899 Other long term (current) drug therapy; Z87.891 Personal history of nicotine dependence
CPT/HCPCS: 71045; 80048; 84484; 85025; 93005; 99284; A4216

== ENCOUNTER 2024-03-29 13:29 | Emergency (ER) | payer MEDICARE, MEDICAID, SELFPAY ==
[2024-03-29 13:29] VITALS: BP 129/105; PULSE 64; RESP 18; TEMP 36.6; O2SAT 94; BMI 33.2
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
--- NOTE | 2024-03-29 13:50 | RAD_ITS ---
STUDY: X-RAY - LEFT FOOT CLINICAL: Male, 64 years old. Pain. No recent injury. TECHNIQUE: 3 view(s) of the foot. COMPARISON: None. FINDINGS: Small plantar spur. Normal visualized subtalar, talonavicular, calcaneocuboid, tarsal and tarsometatarsal articulations. Normal metatarsi. Normal metatarsophalangeal joint of the great toe. Normal tibial and fibular sesamoid bones. Normal interphalangeal joint of the great toe. Normal phalanges of the great toe. Normal second through fifth metatarsophalangeal joints. Normal interphalangeal joints and phalanges of the lesser toes. The soft tissue structures are unremarkable. RAD/Foot min 3 Views IMPRESSION: Small plantar spur. Electronically Signed: Dayron Rainey MD at 14:13 EDT ,
[2024-03-29] MEDS: predniSONE 20 MG Tablet 60 MG PO (14:50)
== END 2024-03-29 14:58 | disposition home or self-care (01) ==
PROVIDERS: Emergency Provider Emergency Medicine; PCP Internal Medicine; Visit Provider Emergency Medicine
DX: M72.2 Plantar fascial fibromatosis (principal); E78.5 Hyperlipidemia, unspecified; G47.33 Obstructive sleep apnea (adult) (pediatric); Z79.899 Other long term (current) drug therapy; Z87.891 Personal history of nicotine dependence
CPT/HCPCS: 73630; 99282

== ENCOUNTER 2024-08-23 14:42 | Emergency (ER) | payer MEDICARE, MEDICAID, SELFPAY ==
[2024-08-23 14:43] VITALS: BP 147/89; PULSE 63; RESP 20; TEMP 36.4; O2SAT 97; BMI 33.1
--- NOTE | 2024-08-23 14:49 | ED.RN ---
my quotations dont work on this computer.... pt states that...the companies name is [employer], I wont you to put that on there too.
[2024-08-23 14:51] VITALS: O2SAT 92
--- NOTE | 2024-08-23 15:05 | EKG12_ITS ---
Test Reason : COUGH Blood Pressure : */* mmHG Vent. Rate : 62 BPM Atrial Rate : 62 BPM P-R Int : 192 ms QRS Dur : 84 ms QT Int : 394 ms P-R-T Axes : 106 31 -2 degrees QTcB Int : 399 ms Normal sinus rhythm with sinus arrhythmia Normal ECG Confirmed by FARHEEN NOLAND, TALON ([id number]), movie editor VIGNESH BALLARD ([id number]) on 08/29/2024 1:20:30 P M Referred By: Arcenio Bass Confirmed By: TALON ZHONG MD
--- NOTE | 2024-08-23 15:06 | EDS_ITS ---
HPI <JOSHUA Pandey - Last Filed: 08/23/24 19:19> History of Present Illness Chief Complaint: Cough Narrative Narrative: Patient presenting today due to a productive cough he has had over the past 4 days. He reports that a company came out to replace his furnace and after they got done, a large amount of dust began coming out of his air vents causing the room to become a clouded. He reports that there is a film of dust and debris all over his house and furniture. Since this happened, he has been coughing. He denies any history of asthma or COPD, he does not smoke. He also reports that for several months to years he has had intermittent left-sided chest pains that come and go. He thinks that they are stress-induced. He denies any cardiac history or history of blood clots/recent surgery/travel/immobilization. He has a PMH of HLD. PFSH <JOSHUA Pandey - Last Filed: 08/23/24 19:19> [facility] Medical History (Updated 08/23/24 @ 16:33 by JOSHUA Pandey) Benign mole Cataracts, bilateral Shingles IBS (irritable bowel syndrome) Hearing loss Anemia Hyperlipemia Rheumatoid arthritis Preventative health care Snoring GERD (gastroesophageal reflux disease) Sleep apnea RHONDA (obstructive sleep apnea) Tobacco abuse, in remission Dyspnea on exertion Anxiety Depression Home Medications ?Medication ?Instructions ?Recorded ?Last Taken ?Type doxepin 100 mg capsule 100 mg PO QHS PRN Sleep 07/13/17 01/21/19 History lorazepam 1 mg tablet 1 mg PO QHS 07/13/17 01/21/19 History omeprazole 20 mg capsule,delayed 20 mg PO ONCE 08/16/17 01/21/19 History release atorvastatin 20 mg tablet 20 mg PO QHS 03/24/19 Unknown History prednisone 20 mg tablet 40 mg (2 x 20 mg) PO DAILY #8 tabs 03/29/24 Unknown Rx pregabalin 150 mg capsule 150 mg PO BID 03/29/24 Unknown History Allergy/AdvReac Type Severity Reaction Status Date / Time No Known Allergies Allergy Verified 08/23/24 14:43 Social History adopted: No household members: none housing: other details: mobile home current occupational status: disabled current occupational exposures/hazards: No pets and animals: No history of recent travel: No Smoking Status: Former smoker second hand exposure: Yes alcohol intake: current alcohol intake frequency: a few times a month Alcohol type: beer substance use type: does not use ROS <JOSHUA Pandey - Last Filed: 08/23/24 19:19> ROS ED Constitutional Constitutional ED: Denies chills or fever(s) Cardiovascular Cardiovascular: Reports chest pain Respiratory/Chest Respiratory/Chest: Reports cough, dyspnea on exertion and sputum; Denies tachypnea Gastrointestinal Gastrointestinal: Denies abdominal pain, nausea or vomiting Musculoskeletal Musculoskeletal: Denies arthralgias or myalgias Integumentary Denies rash Neurologic Neurologic: Denies weakness EXAM <JOSHUA Pandey - Last Filed: 08/23/24 19:19> Physical Exam Const Vital Signs: 08/23/24 14:43 08/23/24 14:51 08/23/24 16:38 Temperature 97.5 F L 97.4 F L Temperature Source Temporal Pulse Rate 63 57 L Respiratory Rate 20 H 15 Respiratory Effort Short of Breath Blood Pressure 147/89 H 126/74 H Blood Pressure Mean 108 91 Pulse Ox 97 93 Oxygen Delivery Method Room Air Room Air Positive well nourished, well developed and no apparent distress General Appearance ED: well developed HEENT Reports normocephalic and head/scalp atraumatic Mouth ED: Yes moist mucous membranes normal Eyes PERRL and EOMs intact bilaterally Neck full ROM and supple Chest Wall inspection of chest normal Resp normal respiratory effort and clear to auscultation bilaterally Cardio regular rate and regular rhythm GI soft to palpation, non-tender, non-distended and no masses Back/Spine normal ROM and normal to inspection Extremity normal to inspection and full ROM Neuro oriented x3, CN's II-XII intact bilaterally, moves all extremities, no focal motor deficits and no sensory deficits noted Sensorium / Orientation: awake and alert Psych mental status grossly normal and thought process normal Skin no rashes or lesions noted and no wounds <Dr. Arcenio Bass DO - Last Filed: 08/24/24 00:30> Physical Exam Const Vital Signs: 08/23/24 14:43 08/23/24 14:51 08/23/24 16:38 Temperature 97.5 F L 97.4 F L Temperature Source Temporal Pulse Rate 63 57 L Respiratory Rate 20 H 15 Respiratory Effort Short of Breath Blood Pressure 147/89 H 126/74 H Blood Pressure Mean 108 91 Pulse Ox 97 93 Oxygen Delivery Method Room Air Room Air [facility] <JOSHUA Pandey - Last Filed: 08/23/24 19:19> [facility] Narrative Medical decision making narrative: Patient presenting today due to a productive cough he has had over the past 4 days. Symptoms started after he had his furnace replaced and a large amount of dust and debris filled the air in his home and covered his furniture. He also reports, while I am here I might as well get everything checked out. And proceeds to describe intermittent left-sided chest pain he has had for months to years time that he believes is stress related. He has no cardiac history. Cardiac labs will be obtained as well as a chest x-ray to rule out infiltrate/other cardiopulmonary abnormality. He has a low Wells score, low suspicion for PE. CBC shows a platelet count of 144, creatinine is 1.41 which is increased from previous labs, I did communicate this finding with the patient and recommended that he have his kidney function rechecked by his PCP. His troponin is 11. Chest x-ray negative for any acute findings. I recommended that he deep clean his house to remove the dust and debris that is irritating his lungs. I recommended close follow-up with his PCP. Patient discharged home in stable condition. Lab Data Attestation: I reviewed the patient's lab results. Labs: Laboratory Results - last 24 hr 08/23/24 15:18 WBC 7.2 RBC 4.85 Hgb 15.0 Hct 44.3 MCV 91.3 MCH 30.9 MCHC 33.9 RDW Std Deviation 44.9 H RDW Coeff of Sunita 13.2 Plt Count 144 L MPV 11.6 Immature Gran % (Auto) 0.300 Neut % (Auto) 60.2 Lymph % (Auto) 30.5 Kinney % (Auto) 7.5 Eos % (Auto) 1.1 Baso % (Auto) 0.4 Absolute Neuts (auto) 4.3 Absolute Lymphs (auto) 2.19 Nucleated RBC % 0 Sodium 141 Potassium 3.6 Chloride 110 H Carbon Dioxide 27.0 Anion Gap 3 L BUN 17 Creatinine 1.41 H Estim Creat Clear Calc 65.20 Est GFR (MDRD) Af Amer 65 Est GFR (MDRD) Non-Af 54 L BUN/Creatinine Ratio 12.1 Glucose 128 H Calcium 9.1 Troponin I High Sens 11 Radiography X-Ray: Read by ED Physician Diagnostic Testing: Clinical Impression(s) from Imaging Studies Chest X-Ray 08/23/24 15:30 IMPRESSION: No radiographic evidence of acute cardiopulmonary disease. Electronically Signed: Arias Borrego MD at 16:18 EST , EKG Initial EKG: Comments: 62 bpm, normal sinus rhythm, no ST elevation, interpreted by attending ED physician <Dr. Arcenio Bass, DO - Last Filed: 08/24/24 00:30> [facility] MDM Narrative Medical decision making narrative: Patient presenting today due to a productive cough he has had over the past 4 days. Symptoms started after he had his furnace replaced and a large amount of dust and debris filled the air in his home and covered his furniture. He also reports, while I am here I might as well get everything checked out. And proceeds to describe intermittent left-sided chest pain he has had for months to years time that he believes is stress related. He has no cardiac history. Cardiac labs will be obtained as well as a chest x-ray to rule out infiltrate/other cardiopulmonary abnormality. He has a low Wells score, low suspicion for PE. CBC shows a platelet count of 144, creatinine is 1.41 which is increased from previous labs, I did communicate this finding with the patient and recommended that he have his kidney function rechecked by his PCP. His troponin is 11. Chest x-ray negative for any acute findings. I recommended that he deep clean his house to remove the dust and debris that is irritating his lungs. I recommended close follow-up with his PCP. Patient discharged home in stable condition. Supervisory Physician Note Patient was seen and examined with the Advanced Practice Provider. Nursing notes and vital signs have been reviewed. Pertinent old records have been reviewed. I agree with the essential elements of the SATURNINO's history, physical exam, assessment, and plan. The differential diagnosis and management options were discussed with the SATURNINO. I participated in determining and agree with the management, procedures, final impression and disposition as documented. See changes noted by me. Please see addendum or separate note for any additional details. 64-year-old male presents for evaluation of cough. Cough started after his furnace was replaced and patient states dust is now all over the house. Denies any fever, chills, shortness of breath, abdominal pain, nausea, vomiting. States he is also having intermittent chronic left-sided chest pain. Currently not having chest pain. Gen: A&O x3, NAD Head: Normocephalic, atraumatic Eyes: No sclera icterus, conjunctiva clear ENT: Moist mucous membranes Neck: Trachea midline, No JVD CV: RRR, no murmurs, no peripheral edema Resp: Lungs CTA BL, no w/r/c GI: Abd soft, non-distended, non-tender, no r/r/g Musc: Full ROM, no deformity Skin: Warm, dry Neuro: Alert, oriented, grossly intact, sensation intact Psych: Cooperative, appropriate mood and affect Suspect cough is secondary to dust/debris. Low suspicious for ACS given his intermittent chronic left-sided chest pain. Currently not having chest pain. EKG was personally reviewed by me and interpreted. Normal sinus rhythm. Heart rate 62. Chest x-ray was personally reviewed and interpreted by me. Chest x- ray without pneumonia, effusion, cardiomegaly, pneumothorax. CBC unremarkable. BMP with renal insufficiency, new from 2023. Suspect this is chronic. Troponin unremarkable. Patient discharged home. Follow-up with PCP. Needs to remove the dust from his house. Impression: 1. Cough, suspect irritant from dust 2. Intermittent chest pain Lab Data Labs: Laboratory Results - last 24 hr 08/23/24 15:18 WBC 7.2 RBC 4.85 Hgb 15.0 Hct 44.3 MCV 91.3 MCH 30.9 MCHC 33.9 RDW Std Deviation 44.9 H RDW Coeff of Sunita 13.2 Plt Count 144 L MPV 11.6 Immature Gran % (Auto) 0.300 Neut % (Auto) 60.2 Lymph % (Auto) 30.5 Kinney % (Auto) 7.5 Eos % (Auto) 1.1 Baso % (Auto) 0.4 Absolute Neuts (auto) 4.3 Absolute Lymphs (auto) 2.19 Nucleated RBC % 0 Sodium 141 Potassium 3.6 Chloride 110 H Carbon Dioxide 27.0 Anion Gap 3 L BUN 17 Creatinine 1.41 H Estim Creat Clear Calc 65.20 Est GFR (MDRD) Af Amer 65 Est GFR (MDRD) Non-Af 54 L BUN/Creatinine Ratio 12.1 Glucose 128 H Calcium 9.1 Troponin I High Sens 11 Radiography Diagnostic Testing: Clinical Impression(s) from Imaging Studies Chest X-Ray 08/23/24 15:30 IMPRESSION: No radiographic evidence of acute cardiopulmonary disease. Electronically Signed: Arias Borrego MD at 16:18 EST Reading Location ID and State: [facility] / [place] Tel , Service support , Discharge Plan Triage Chief Complaint: Cough ED Midlevel Provider: Faith Eastman ED Provider: Arcenio Bass Dx/Rx/DC Orders Clinical Impression: Cough, Atypical chest pain Instructions: ED Chest Pain, Uncertain Cause Prescriptions: No Action omeprazole 20 mg capsule,delayed release(DR/EC) 20 mg PO ONCE doxepin 100 MG capsule 100 mg PO QHS PRN (Reason: Sleep) Patient Comments: TAKE 1 CAPSULE BY MOUTH AT BEDTIME NEEDED lorazepam 1 tablet 1 mg PO QHS Patient Comments: atorvastatin 20 MG tablet 20 mg PO QHS pregabalin 150 mg capsule 150 mg PO BID prednisone 20 mg tablet 40 mg PO DAILY Qty: 8 0RF Primary Care Provider: Elijah Fields Referrals: Elijah Fields MD [Primary Care Provider] - 5-7 Days Activity Restrictions/Additional Instructions: Dust, vacuum, and clean your house to help remove lung irritants. Follow-up with your PCP and return for any other concerns. Print Language: Telugu Disposition Disposition: Home, Self Care Discharge Date/Time: 08/23/24 16:48
--- NOTE | 2024-08-23 15:30 | RAD_ITS ---
INDICATION: chest pain EXAMINATION/TECHNIQUE: X-RAY - XR Chest 2 Views COMPARISON: 06/24/2022 FINDINGS: LINES/DEVICES: None. LUNGS: No consolidation, edema or effusion. No pneumothorax. MEDIASTINUM AND CARDIOVASCULAR STRUCTURES: Cardiac silhouette not enlarged. Central airways and mediastinal contour are unremarkable. BONES AND SOFT TISSUES: No acute findings. RAD/Chest PA and Lateral IMPRESSION: No radiographic evidence of acute cardiopulmonary disease. Electronically Signed: Arias Borrego MD at 16:18 EST ,
[2024-08-23 15:33] LABS: Absolute Lymphocyte Count 2.19 X10^3/uL (0.83-4.51); Absolute Neutrophil Count 4.3 X10^3/uL (2.0-7.7); Basophil# 0.03 X10^3/uL; Basophil% 0.4 % (0-1); Eosinophil# 0.08 X10^3/uL; Eosinophils% 1.1 % (0-5); Hematocrit 44.3 % (40-54); Lymphocyte # 2.19 X10^3/ul (0.83-4.51); Lymphocyte % 30.5 % (19-41); Mean Corp Hgb Conc 33.9 g/dL (32-36); Mean Corpuscular Hgb 30.9 pg (27.0-32.0); Mean Corpuscular Volume 91.3 fL (80-94); Mean Platelet Vol. 11.6 fl (6.2-12.0); Monocyte# 0.54 X10^3/uL; Monocyte% 7.5 % (0-10); NRBC Flagged by Analyzer 0 % (0-5); Neutrophil # 4.33 X10^3/uL (2.7-7.7); Neutrophil % 60.2 % (47-70); Platelet Count 144 K/mm3 (150-450); RBC Distribution Width CV 13.2 % (11.6-14.6); RBC Distribution Width SD 44.9 fl (35.1-43.9); Red Blood Count 4.85 M/mm3 (4.6-6.2); White Blood Count 7.2 K/mm3 (4.4-11.0)
[2024-08-23 15:58] LABS: Anion Gap 3 (5-15); BUN 17 mg/dL (7-18); BUN/Creat Ratio 12.1 RATIO (10-20); Calcium,Total 9.1 mg/dL (8.5-10.1); Chloride 110 mmol/L (98-107); Creatinine, Serum 1.41 mg/dL (0.70-1.30); EST Glomerular Filtration Rate 54 mL/min (>60); Est Glom Filt Rate - Afr Amer 65 mL/min (>60); Glucose 128 mg/dL (74-106); Potassium 3.6 mmol/L (3.5-5.1); Sodium Level 141 mmol/L (136-145); Troponin-I HS 11 pg/mL (3.0-78.0)
[2024-08-23 16:38] VITALS: BP 126/74; PULSE 57; RESP 15; TEMP 36.3; O2SAT 93
== END 2024-08-23 16:48 | disposition home or self-care (01) ==
PROVIDERS: Physician Assistant; Emergency Provider Surgery; PCP Internal Medicine; Referring Provider Surgery; Visit Provider Surgery
DX: R05.9 Cough, unspecified (principal); R07.89 Other chest pain; G47.33 Obstructive sleep apnea (adult) (pediatric); Z87.891 Personal history of nicotine dependence
CPT/HCPCS: 71046; 80048; 84484; 85025; 93005; 99283; A4216

== ENCOUNTER 2024-10-24 18:33 | Emergency (ER) | payer MEDICARE, MEDICAID, SELFPAY ==
[2024-10-24 18:34] VITALS: BP 141/96; PULSE 74; RESP 16; TEMP 36; O2SAT 98; BMI 34.1
[2024-10-24 18:37] VITALS: BP 141/96; PULSE 74; RESP 16; TEMP 36; O2SAT 98
--- NOTE | 2024-10-24 18:40 | EKG12_ITS ---
Test Reason : CP Blood Pressure : */* mmHG Vent. Rate : 70 BPM Atrial Rate : 70 BPM P-R Int : 184 ms QRS Dur : 94 ms QT Int : 390 ms P-R-T Axes : 9 36 21 degrees QTcB Int : 421 ms Normal sinus rhythm with sinus arrhythmia Normal ECG Confirmed by FARHEEN NOLAND, TALON ([id number]), slot editor VIGNESH BALLARD ([id number]) on 10/26/2024 1:02:55 PM Referred By: Confirmed By: TALON ZHONG MD
--- NOTE | 2024-10-24 18:57 | RAD_ITS ---
PROCEDURE: CHEST 1 VIEW (PORTABLE) REASON FOR EXAM: 64-year-old male, intermittent chest pain since last night. TECHNIQUE: Frontal view of the chest. COMPARISON: Chest radiographs 08/23/2024. FINDINGS: The heart size is normal. The lungs are clear. No focal consolidation, pleural effusion or pneumothorax. Degenerative changes are identified within the thoracic spine. RAD/Chest 1 View (Portable) IMPRESSION: NEGATIVE CHEST. Reading Location: [id number]
[2024-10-24 19:06] LABS: Absolute Lymphocyte Count 1.83 X10^3/uL (0.83-4.51); Absolute Neutrophil Count 5.2 X10^3/uL (2.0-7.7); Basophil# 0.03 X10^3/uL; Basophil% 0.4 % (0-1); Eosinophil# 0.05 X10^3/uL; Eosinophils% 0.6 % (0-5); Hematocrit 44.3 % (40-54); Hemoglobin 14.6 g/dL (13.0-16.5); Lymphocyte # 1.83 X10^3/ul (0.83-4.51); Lymphocyte % 23.3 % (19-41); Mean Corpuscular Hgb 29.5 pg (27.0-32.0); Mean Corpuscular Volume 89.5 fL (80-94); Mean Platelet Vol. 11.2 fl (6.2-12.0); Monocyte# 0.74 X10^3/uL; Monocyte% 9.4 % (0-10); NRBC Flagged by Analyzer 0 % (0-5); Platelet Count 132 K/mm3 (150-450); RBC Distribution Width SD 42.4 fl (35.1-43.9); Red Blood Count 4.95 M/mm3 (4.6-6.2); White Blood Count 7.9 K/mm3 (4.4-11.0)
--- NOTE | 2024-10-24 19:31 | ED.VIS.CHEST ---
HPI History of Present Illness Chief Complaint: Chest Pain [facility] Medical History (Updated 10/24/24 @ 21:[address] Shon Stoll, DO) Benign mole Cataracts, bilateral Shingles IBS (irritable bowel syndrome) Hearing loss Anemia Hyperlipemia Rheumatoid arthritis Preventative health care Snoring GERD (gastroesophageal reflux disease) Sleep apnea RHONDA (obstructive sleep apnea) Tobacco abuse, in remission Dyspnea on exertion Anxiety Depression Home Medications ?Medication ?Instructions ?Recorded ?Last Taken ?Type doxepin 100 mg capsule 100 mg PO QHS PRN Sleep 07/13/17 01/21/19 History lorazepam 1 mg tablet 1 mg PO QHS 07/13/17 01/21/19 History omeprazole 20 mg capsule,delayed 20 mg PO QHS 08/16/17 01/21/19 History release atorvastatin 20 mg tablet 20 mg PO QHS 03/24/19 Unknown History pregabalin 150 mg capsule 150 mg PO BID 03/29/24 Unknown History fenofibrate nanocrystallized 145 145 mg PO DAILY 10/24/24 Unknown History mg tablet topiramate 50 mg tablet 50 mg PO QHS 10/24/24 Unknown History Allergy/AdvReac Type Severity Reaction Status Date / Time No Known Allergies Allergy Verified 10/24/24 18:34 Social History adopted: No household members: none housing: other details: mobile home current occupational status: disabled current occupational exposures/hazards: No pets and animals: No history of recent travel: No Smoking Status: Former smoker second hand exposure: Yes alcohol intake: current alcohol intake frequency: a few times a month Alcohol type: beer substance use type: does not use EXAM Physical Exam Const Vital Signs: 10/24/24 18:34 10/24/24 18:37 10/24/24 19:34 Temperature 96.8 F L 96.8 F L Temperature Source Temporal Temporal Pulse Rate 74 74 Respiratory Rate 16 16 Respiratory Effort Blood Pressure 141/96 H 141/96 H Blood Pressure Mean 111 111 Pulse Ox 98 98 92 Oxygen Delivery Method Room Air Room Air Room Air 10/24/24 19:36 10/24/24 19:37 10/24/24 20:33 Temperature 97.8 F Temperature Source Oral Pulse Rate 67 66 Respiratory Rate 15 15 Respiratory Effort Short of Breath Blood Pressure 142/84 H 147/84 H Blood Pressure Mean 103 105 Pulse Ox 94 93 Oxygen Delivery Method Room Air Room Air 10/24/24 21:59 Temperature 97.8 F Temperature Source Pulse Rate 78 Respiratory Rate 15 Respiratory Effort Blood Pressure 143/89 H Blood Pressure Mean 107 Pulse Ox 93 Oxygen Delivery Method [facility] [place] Narrative Medical decision making narrative: HISTORY OF PRESENT ILLNESS: 64-year-old male presents with intermittent chest pain. In the setting of epistaxis, shortness of breath, congestion productive cough and michaud sputum. Notes this began several months ago. Notes today shortness of breath got worse. Denies bleeding diathesis. The patient denies recent surgery in the last 4 weeks or immobilization in the last 3 days, denies previous diagnosis of DVT or PE, hemoptysis, unilateral leg swelling or malignancy with treatment the last 6 months or palliative. No estrogen use noted. Denies lower extremity edema. Denies nausea or vomiting. He suspects his symptoms are related to his apartment's furnace being clean. Notes a furnace, blue all the dust out of his vents his Apt. 3 months ago. Notes since and has been unable to clean the dust himself. Also complains of a sore throat. REVIEW OF SYSTEMS: Pertinent positives: Cough, chest pain Pertinent negatives: As per HPI PHYSICAL EXAM: Nursing triage notes reviewed, Vital signs reviewed Constitutional: please see [facility] HENT: MMM, posterior oropharynx clean dry intact no exudates Eyes: Pupils equal round and reactive to light, Extraocular muscles intact Neck: No stridor, no JVD, full neck ROM Lungs: Clear to auscultation, No wheezing or rales. No increased work of breathing, no conversational dyspnea, no accessory muscle use, no nasal flaring. No respiratory distress noted Heart: Regular rate and rhythm, No murmurs, No rubs and No gallops, 2+ distal pulses (radial, femoral, posterior tibial) in all extremities Abdomen: Soft, there is no tenderness, rigidity, rebound or guarding, no obvious peritoneal signs, no palpable pulsatile abdominal masses, no auscultated abdominal bruit : No CVAT Extremities: No edema Neuro: No new focal neurological deficits, cranial nerves II through XII intact, 5/5 strength in all present extremities. Intact sensation to light touch in all present extremities, 2+ reflexes bilateral patella tendons. Skin: No rash or lesions noted MEDICAL DECISION MAKING: Chief Complaint: Cough, chest pain External records reviewed: Reviewed prior cardiovascular testing. Patient was seen for atypical chest pain in August 2024 Factors affecting care: GERD, hyperlipidemia, RHONDA, Social determinants of health: Tobacco abuse History obtained from others: none Consults: none [facility] Narrative: Patient was initially dynamically stable, afebrile and nontoxic-appearing. Exam without stridor, no signs of bacterial posterior oropharyngeal infection. No drooling. No respiratory distress. No thyromegaly. Lungs are clear. No lower extremity edema. No stigmata VTE I considered the following differential diagnosis: ACS, arrhythmia, anemia, electrolyte disturbance, COVID/RSV/flu, strep throat, pneumonia, CHF, PE I obtained a broad lab and imaging workup to further elucidate etiology of the patient's complaints. ALL IMAGES (IF OBTAINED) HAVE BEEN PERSONALLY REVIEWED AND INTERPRETED BY MYSELF. I have personally reviewed the patient's chest x-ray. Chest x-ray is unremarkable for pulmonary edema, pneumothorax, pneumonia or focal cardiopulmonary abnormality. EKG non-ischemic CBC without leukocytosis, severe anemia, noted mild thrombocytopenia. BMP without evidence of significant electrolyte abnormalities, no anion gap, no acute kidney injury. High-sensitivity troponin is negative, no evidence of myocardial ischemiax2 Strep swab negative COVID/flu/RSV The synthesis of the patient's history, physical exam, labs images suggest no acute life-limiting etiology specifically no sign of ACS, pneumonia, pericarditis, PE or aortic dissection based on history physical exam labs images I considered pulmonary embolism, consider obtaining a CTA or D-dimer in the patient lowers well score and as such have a low suspicion for pulmonary embolism. No indication for advanced imaging or restratification testing at this time While I considered aortic dissection the patient had no pulse deficits, no focal neurologic deficits, no stigmata of aortic dissection and no family history or personal history of connective tissue diseases and as such have a low suspicion for aortic dissection. The patient is appropriate for discharge home encouraged close outpatient follow-up for confirmatory testing including stress test and echocardiogram. The patient and/or family, caregivers express understanding. The patient and/or family, caregivers agrees with the plan. Shared decision making: I will have a discussion with the patient and or visitors regarding risk/benefits of further testing or admission. They will be made aware of of the risk/benefits inherent in this decision they will be given the opportunity to voice understanding. Total critical care time today provided was at least 0 minutes. This excludes separately billable procedures. Critical care time (if documented) is secondary to the patient having high probability of clinically significant/life threatening deterioration in the patient's condition which required my urgent intervention. Impression: 1. Chest pain 2. Sore throat Dispo: Discharge home This note was generated with [employer] dictation software. It may contain incorrect words, spelling, and punctuation that were not noted in review of the chart prior to signing. Lab Data Labs: Laboratory Results - last 24 hr 10/24/24 10/24/24 18:53 21:04 WBC 7.9 RBC 4.95 Hgb 14.6 Hct 44.3 MCV 89.5 MCH 29.5 MCHC 33.0 RDW Std Deviation 42.4 RDW Coeff of Sunita 13.0 Plt Count 132 L MPV 11.2 Immature Gran % (Auto) 0.300 Neut % (Auto) 66.0 Lymph % (Auto) 23.3 Stewart % (Auto) 9.4 Eos % (Auto) 0.6 Baso % (Auto) 0.4 Absolute Neuts (auto) 5.2 Absolute Lymphs (auto) 1.83 Nucleated RBC % 0 Sodium 139 Potassium 3.7 Chloride 108 H Carbon Dioxide 24.0 Anion Gap 7 BUN 18 Creatinine 1.34 H Estim Creat Clear Calc 67.62 Est GFR (MDRD) Af Amer 69 Est GFR (MDRD) Non-Af 57 L BUN/Creatinine Ratio 13.4 Glucose 90 Calcium 9.4 Troponin I High Sens 9 10 Radiography Diagnostic Testing: Clinical Impression(s) from Imaging Studies Chest X-Ray 10/24/24 18:57 IMPRESSION: NEGATIVE CHEST. Reading Location: [facility] Discharge Plan Triage Chief Complaint: Chest Pain Other Complaint: Shortness of Breath ED Provider: Shon Stoll Dx/Rx/DC Orders Clinical Impression: Chest pain Instructions: Chest Pain [facility] Prescriptions: No Action omeprazole 20 mg capsule,delayed release(DR/EC) 20 mg PO QHS doxepin 100 MG capsule 100 mg PO QHS PRN (Reason: Sleep) Patient Comments: TAKE 1 CAPSULE BY MOUTH AT BEDTIME NEEDED lorazepam 1 tablet 1 mg PO QHS Patient Comments: atorvastatin 20 MG tablet 20 mg PO QHS pregabalin 150 mg capsule 150 mg PO BID Patient Comments: PT THINKS HE IS TAKING THIS BUT IS UNSURE topiramate 50 mg tablet 50 mg PO QHS fenofibrate nanocrystallized 145 mg tablet 145 mg PO DAILY Primary Care Provider: Elijah Fields Referrals: Elijah Fields MD [Primary Care Provider] - Activity Restrictions/Additional Instructions: Thank you for trusting us with your care today! Your labs images were negative. Please take Tylenol (2 pills, 650 mg), ibuprofen (2 pills, 400 mg) every 6 hours as needed for pain and fever control. Please return to the emergency department if your symptoms change or worsen. Please follow with your primary care physician for further outpatient evaluation and management. Print Language: Luxembourgish Disposition Disposition: Home, Self Care Discharge Date/Time: 10/24/24 22:07
[2024-10-24 19:34] VITALS: O2SAT 92
[2024-10-24 19:37] VITALS: BP 142/84; PULSE 67; RESP 15; TEMP 36.6; O2SAT 94
[2024-10-24 19:38] LABS: Anion Gap 7 (5-15); BUN 18 mg/dL (7-18); BUN/Creat Ratio 13.4 RATIO (10-20); Calcium,Total 9.4 mg/dL (8.5-10.1); Chloride 108 mmol/L (98-107); Creatinine, Serum 1.34 mg/dL (0.70-1.30); EST Glomerular Filtration Rate 57 mL/min (>60); Est Glom Filt Rate - Afr Amer 69 mL/min (>60); Estimated Creatinine Clearance 67.62 ml/min; Glucose 90 mg/dL (74-106); Potassium 3.7 mmol/L (3.5-5.1); Sodium Level 139 mmol/L (136-145); Troponin-I HS (w/2H Reflex) 9 pg/mL (3.0-78.0)
[2024-10-24 20:33] VITALS: BP 147/84; PULSE 66; RESP 15; O2SAT 93
[2024-10-24 21:00] LABS: Reflex Troponin-HS? (from REC) Y
[2024-10-24 21:31] LABS: Troponin-I HS 10 pg/mL (3.0-78.0)
[2024-10-24 21:59] VITALS: BP 143/89; PULSE 78; RESP 15; TEMP 36.6; O2SAT 93
== END 2024-10-24 22:07 | disposition home or self-care (01) ==
PROVIDERS: Emergency Provider Emergency Medicine; PCP Internal Medicine; Visit Provider Emergency Medicine
DX: R07.9 Chest pain, unspecified (principal); K21.9 Gastro-esophageal reflux disease without esophagitis; E78.5 Hyperlipidemia, unspecified; R06.02 Shortness of breath; G47.33 Obstructive sleep apnea (adult) (pediatric); Z79.899 Other long term (current) drug therapy; Z87.891 Personal history of nicotine dependence
CPT/HCPCS: 71045; 80048; 84484; 85025; 87631; 87651; 93005; 99285; A4216